=== PATIENT | male | born 1965 | race Caucasian/White ===

== ENCOUNTER 2021-02-26 08:25 | Outpatient (CLI) | payer SELFPAY ==
--- NOTE | 2021-02-26 08:36 | US_ITS ---
WS: [id number] TESTICULAR ULTRASOUND HISTORY: LEFT TESTICULAR MASS COMPARISON: None available. TECHNIQUE: Real-time and color Doppler imaging or utilized to perform a testicular ultrasound. Right testicle: 4.5 cm x 3.4 cm x 2.7 cm. Normal size and echogenicity. No mass or torsion. Normal color Doppler is present throughout. Systolic and diastolic velocities are both present. No significant hydrocele. Right epididymis: Normal epididymis with no increased vascularity. Left testicle: 4.3 cm x 3.3 cm x 3.0 cm. Normal size and echogenicity. No mass or torsion. Normal color Doppler is present throughout. Systolic and diastolic velocities are both present. No significant hydrocele. Left epididymis: Numerous cysts associated with the LEFT epididymis, centered in the epididymal head. The entire cluster measures 5.0 x 3.4 x 3.4 cm. Most consistent with spermatoceles. US/US scrotum [id number] IMPRESSION: 1. No testicular mass or torsion. 2. Large cluster of cysts centered within the LEFT epididymal head. Probably s permatoceles.
== END 2021-02-26 08:26 | disposition home or self-care (01) ==
LOC: RAD 08:33
PROVIDERS: PCP Urology; Visit Provider Family Medicine
DX: N50.9 Disorder of male genital organs, unspecified (principal); N50.3 Cyst of epididymis
CPT/HCPCS: 76870

== ENCOUNTER 2021-03-06 10:14 | Outpatient (CLI) | payer SELFPAY ==
--- NOTE | 2021-03-06 10:23 | CT_ITS ---
WS: [id number] LDCT LUNG CANCER SCREENING TECHNIQUE: Noncontrast CT of the chest with coronal and sagittal reformatted images. CLINICAL INFORMATION: TOBACCO USE COMPARISON: None. DLP: 59.73 mGy.cm DIvol: 1.[address] scans at [facility] use at least one of these dose optimization techniques: automat ed exposure control; mA and/or kV adjustment per patient size (includes targeted exams where dose is matched to clinical indication); or iterative reconstruction. FINDINGS: Calcified granulomas. Hazy groundglass nodule left upper lobe measuring 4 mm. Tiny subpleural nodule right lower lobe laterally measuring 2 mm. A few tiny subpleural nodules in the right upper lobe and right middle lobe.No acute pulmonary infiltrates. No focal pneumonia or pleural fluid. Mild chronic e mphysematous changes with subpleural emphysema in the lung apices. Adrenal glands are normal. CT/CT lung screening [id number] IMPRESSION: LUNG-RADS: 2-Benign Appearance or Behavior FOLLOW UP: 12 Month: Continue annual screening with LDCT
== END 2021-03-06 10:15 | disposition home or self-care (01) ==
LOC: RAD 10:18
PROVIDERS: PCP Family Medicine; Visit Provider Family Medicine
DX: Z12.2 Encounter for screening for malignant neoplasm of respiratory organs (principal); Z72.0 Tobacco use; R91.1 Solitary pulmonary nodule; J84.10 Pulmonary fibrosis, unspecified
CPT/HCPCS: 71271

== ENCOUNTER 2021-03-27 09:22 | Outpatient (CLI) | payer SELFPAY ==
--- NOTE | 2021-03-27 09:29 | XR_ITS ---
WS: [id number] Exam: XR shoulder RT min 2V* [id number] Date/Time of Exam: 03/27/2021 9:35 AM Reason For Exam: SHOULDER PAIN RIGHT The projections of the shoulder reveal no fractures, anomalies, soft tissue swelling, or calcificatio ns. There is normal bony alignment. No irregularity of the bony architecture is noted. XR/XR shoulder RT min 2V* [id number] IMPRESSION: Negative right shoulder.
--- NOTE | 2021-03-27 09:30 | XR_ITS ---
WS: [id number] Exam: XR shoulder LT min 2V* [id number] Date/Time of Exam: 03/27/2021 9:35 AM Reason For Exam: SHOLDER PAIN LEFT No acute fracture or dislocation. There are 2 prominent osseous densities seen in the region of the a xillary pouch that may represent large synovial osteochondromas. There is also a bony protuberance se en along the medial humeral neck that may represent an osteochondroma. Old fracture deformity of the distal clavicle noted with soft tissue ossification. No acute fracture is seen. XR/XR shoulder LT min 2V* [id number] IMPRESSION: 1. 2 prominent osseous density seen in the region of the axillary pouch that ma y represent synovial osteochondromas. There is also a probable osteochondroma a long the cortex of the medial humeral neck. 2. Old fracture deformity of the distal clavicle with soft tissue ossification.
--- NOTE | 2021-03-27 09:30 | XR_ITS ---
WS: [id number] Exam: XR hand RT min 3V* [id number] Date/Time of Exam: 03/27/2021 9:35 AM Reason For Exam: PAIN IN JOINTS RIGHT HAND Findings: No fractures, soft tissue swelling, or unusual calcifications are noted. The hand shows normal bony alignment. There is no irregularity of the bony architecture. XR/XR hand RT min 3V* [id number] IMPRESSION: Normal right hand.
== END 2021-03-27 09:23 | disposition home or self-care (01) ==
PROVIDERS: PCP Family Medicine; Visit Provider Family Medicine
DX: M25.511 Pain in right shoulder (principal); M25.541 Pain in joints of right hand; M25.512 Pain in left shoulder
CPT/HCPCS: 73030; 73130